=== PATIENT | male | born 1965 | race Caucasian/White ===

== ENCOUNTER 2019-07-04 11:47 | Day surgery (SDC) | payer OTHER ==
[~2019-07-04] VITALS: Ht 182.9 cm; Wt 86.9 kg
--- NOTE | ~2019-07-04 | O ---
[facility] [place] [address] OPERATIVE REPORT Name: AGATHA RAE Room #: 150-6 [facility]..#: [id number] Admission: 07/04/19 Attend Phys: Beto Sherwood MD Discharge: Date of : 61 Report #: [id number] THIS REPORT FOR: cc: Willard Jaun MD, John H. MD Franey,Beto Chen MD ~ CC: Willard Sherwood DATE OF SERVICE: 07/04/2019 PATIENT OF: Dr. Beto Sherwood and Dr. Willard Juan. PREOPERATIVE DIAGNOSIS: Left inguinal hernia. POSTOPERATIVE DIAGNOSIS: Left inguinal hernia with a left cord lipoma. PROCEDURE: Left inguinal hernia repair with Prolene hernia system mesh and excision of left cord lipoma. SURGEON: Beto Sherwood MD ANESTHESIA: Local IV sedation. DESCRIPTION OF PROCEDURE: The patient was brought to the operating room and placed on operative table in the supine position. Sequential compression devices were in place for DVT prophylaxis. There was no indication for preoperative antibiotics. The patient underwent IV sedation. Left inguinal area was prepped and draped in a sterile fashion. Skin and subcutaneous tissue were then infiltrated with 0.5% Marcaine and 1% Xylocaine in a 1:1 mixture. Left inguinal skin incision was then performed using #10 scalpel blade. Hemostasis obtained using electrocautery. Dissection was carried down through the subcutaneous tissue, the external oblique fascia, which was then incised with a knife and opened with the Metzenbaum scissors. The ilioinguinal nerve was identified, dissected free, injected with local mixture and preserved. The cord was then elevated and held into place with Cathi drain. Cremasteric muscle fibers were then split in the direction of their fibers using a clamp and electrocautery. A large cord lipoma was identified, dissected free, clamped, excised and tied with 2-0 chromic tie and sent as specimen to pathology. The floor was inspected and found to be intact, but it was somewhat weakened along with a very dilated internal ring. The preperitoneal space at the internal ring was then dissected free and an extended. Prolene hernia system mesh was then inserted through the internal ring and then underlay patch was then deployed in the preperitoneal space. The floor was then tightened using a running 2-0 Prolene two layer Bassini repair. The mesh overlay patch was then deployed into [facility] [address] [place] [address] OPERATIVE REPORT Name: AGATHA RAE Room #: 150-6 [facility]#: [id number] Admission: 07/04/19 Attend Phys: Beto Sherwood MD Discharge: Date of : 61 Report #: [id number] the inguinal canal and secured the pubic tubercle with the same running 2-0 Prolene suture. It was then secured superiorly at the connector using simple interrupted 2-0 Vicryl sutures. The mesh was split and wrapped around the cord, secured to the inguinal ligament with simple interrupted 2-0 Vicryl suture. The cord and ilioinguinal nerve were then returned to the canal intact. The external oblique fascia was then closed using running 2-0 Vicryl suture. Greg's fascia was then reapproximated using 3 simple interrupted 2-0 chromic sutures and the skin then closed with a running 4-0 subcuticular Vicryl stitch. Wound was then dressed with Mastisol, 1/2-inch Steri-Strips cut in half, Telfa, 4 x 4 gauze, sponge and tape. The patient was then taken to the recovery room awake, alert and in good condition. Estimated blood loss was approximately 10 mL and the patient tolerated procedure well. All sponge, lap and instrument counts correct x 2. By: 1530 1554 Beto Sherwood MD /nt
[~2019-07-04 11:47] MED LIST: ALLOPURINOL 10100 M1 PO; BENAZEPRIL HCL20 MG PO; CELEXA 10 MG TA10 M1 PO; NABUMETONE 500500 M1 PO
[2019-07-04 12:33] VITALS: BP 140/86
[2019-07-04] MEDS ORDERED: NORCO 5-325 TA1 EAC1 PO (13:50)
--- NOTE | 2019-07-04 16:19 | EKG ---
[facility] [place] [address] ELECTROCARDIOGRAM REPORT Name: AGATHA RAE Room #: DEP [facility].#: [id number] Admission: 07/04/19 Attend Phys: Beto Sherwood MD Discharge: 07/04/19 Date of : 61 Report #: [id number] THIS REPORT FOR: cc: Willard Juan MD, John H. MD Couchonnal, Luis F. MD ~ THIS REPORT FOR: //name// [facility] Test Date: 2019-07-04 Test Time: 12:30:34 Pat Name: AGATHA RAE Department: Room: [facility] Gender: M Head Cook: marlyn : 1965 Requested By: Abraham Trent Order Number: [id number] MD: Cody Holcomb Measurements Intervals [place] Rate: 79 P: 7 [place]: 177 QRS: -37 QRSD: 103 T: 28 QT: 373 QTc: 428 Interpretive Statements Sinus rhythm Left ventricular hypertrophy Baseline wander in lead(s) V2 No previous ECG available for comparison Electronically Signed On 07-04-2019 16:18:25 [employer] by Cody Holcomb [email or web address] <ELECTRONICALLY SIGNED> By: Cody Holcomb MD 07/04/19 1618 1230 1230 Cody Holcomb MD /EPI
== END 2019-07-04 16:01 | disposition home or self-care (01) ==
LOC: OR 11:47 → TBA 11:48 → OR 12:44
DX: K40.90 Unilateral inguinal hernia, without obstruction or gangrene, not specified as recurrent (principal); D17.6 Benign lipomatous neoplasm of spermatic cord; I10 Essential (primary) hypertension; F41.9 Anxiety disorder, unspecified; G47.30 Sleep apnea, unspecified; M19.90 Unspecified osteoarthritis, unspecified site; Z98.890 Other specified postprocedural states; Z79.899 Other long term (current) drug therapy; Z87.891 Personal history of nicotine dependence
CPT/HCPCS: 50010; 50101; 50386; 50417; 54111; 56524; 56526; 56528; 62110; 62850; 70005